=== PATIENT | female | born 1950 | race Caucasian/White ===

== ENCOUNTER 2018-03-06 08:39 | Emergency (ER) | END 2018-03-06 11:21 | disposition home or self-care (01) ==

== ENCOUNTER 2018-03-23 03:54 | Emergency (ER) | END 2018-03-23 05:32 | disposition home or self-care (01) ==

== ENCOUNTER 2018-08-09 09:31 | Emergency (ER) | END 2018-08-09 12:41 | disposition home or self-care (01) ==

== ENCOUNTER 2018-12-29 16:51 | Emergency (ER) | payer MEDICAID ==
[~2018-12-29] VITALS: Ht 147.3 cm; Wt 58.8 kg
[~2018-12-29 16:51] MED LIST: ACET325T33 PO; ACET500C5 PO; AMIO200T4 PO; ASPI-1046 PO; BENA20TA4 PO; CALC1TAB32 PO; DICY20TA59 PO; DIPH1TAB25 PO; DOCU-159 PO; GABA300C16 PO; HYDR-3980 PO; IBUP-1542 PO; LORA5TAB4 PO; MELO15TA30 PO; METF-849 PO; METO-429 PO; OMEP20CA16 PO; SIMV20TA2 PO; SPIR25TA PO; TRAM50TA2 PO; TYL500 PO; WARF2.5T PO; WARF5TAB PO
[2018-12-29 17:55] VITALS: Ht 147.3 cm; Wt 58.8 kg
[2018-12-29] MEDS ORDERED: ACETAMINOPHEN 325 MG TAB PO ONE (19:30)
[2018-12-29] MEDS ORDERED: ACET500C5 PO (20:20)
--- NOTE | 2018-12-29 20:23 | ERD ---
ER Documentation Chief Complaint Chief Complaint left hip pain s/p fall saturday HPI 68-year-old female presents with left hip pain and bruising after falling 4 days ago. She has a large amount of bruising and is concerned she has a blood clot patient has shortness of breath, syncope, calf swelling, hemoptysis, fevers, restricted range of motion weakness. She is able to ambulate although with some pain. ROS All systems reviewed and are negative except as per history of present illness. Medications Home Meds Active Scripts Acetaminophen* (Tylophen*) 500 Mg Capsule, 1 CAP PO Q6H PRN for PAIN AND OR ELEVATED TEMP, #20 CAP Prov:GE TRUJILLO MD 12/29/18 Meloxicam* (Mobic*) 15 Mg Tablet, 15 MG PO DAILY, #30 TAB Prov:LINDA SMITH PA-C 10/10/18 Acetaminophen* (Tylenol*) 500 Mg Tab, 500 MG PO Q4H PRN for MILD PAIN LEVEL 1-3, #30 TAB Prov:JHONATAN OCONNOR DO 08/09/18 Ibuprofen* (Ibuprofen*) 600 Mg Tablet, 600 MG PO Q6H PRN for PAIN, #30 TAB Prov:JHONATAN OCONNOR DO 08/09/18 Acetaminophen* (Tylenol*) 325 Mg Tablet, 2 TAB PO Q6 PRN for PAIN AND OR ELEVATED TEMP, #20 TAB Prov:MAJOR JACKMAN PA-C 03/23/18 Tramadol HCl (Tramadol HCl) 50 Mg Tablet, 50 MG PO Q6 PRN for PAIN, #20 TAB Prov:HARLAN GUTIÉRREZ PA-C 03/06/18 Hydrocodone/Acetaminophen ([place] 10-325 Tablet) 1 Each Tablet, 1 TAB PO Q6H PRN for PAIN, #20 TAB Prov:MAJOR REYNOLDS 05/20/16 Acetaminophen* (Tylophen*) 500 Mg Capsule, 500 MG PO Q6H PRN for PAIN, #20 TAB Prov:ABDIAS MCFARLANE NP 05/16/16 Gabapentin* (Gabapentin*) 300 Mg Capsule, 300 MG PO BID, #60 CAP Prov:ABDIAS MCFARLANE NP 05/16/16 Dicyclomine Hcl* (Bentyl*) 20 Mg Tablet, 20 MG PO QID, #10 TAB Prov:LATOYA JAMES MD 04/10/16 Diphenoxylate Hcl-Atropine* (Lomotil*) 1 Tab Tab, 2 TAB PO QID PRN for DIARRHEA, #20 TAB Prov:LATOYA JAMES MD 04/10/16 Reported Medications Warfarin Sodium* (Coumadin*) 5 Mg Tablet, 5 MG PO EXCEPT SATURDAY, TAB 04/10/16 Metoprolol Tartrate* (Lopressor*) 50 Mg Tab, 50 MG PO BID, #60 TAB 04/10/16 Warfarin Sodium* (Coumadin*) 2.5 Mg Tablet, 2.5 MG PO ONLY SATURDAY, TAB 06/18/15 Benazepril Hcl* (Benazepril Hcl*) 20 Mg Tablet, 20 MG PO DAILY, TAB 06/18/15 Metformin* (Glucophage*) 500 Mg Tab, 500 MG PO BID WITH MEALS, TAB 06/18/15 Omeprazole* (Omeprazole*) 20 Mg Capsule.dr, 20 MG PO DAILY, CAP 06/18/15 Calcium/Vitamin D (Oyst-Jaleel-D 500) 1 Tab Tab, 1 TAB PO DAILY, TAB 06/18/15 Docusate Sodium* (Docusate Sodium*) 100 Mg Capsule, 100 MG PO BID, CAP 06/18/15 Aspirin* (Aspirin* (EC)) 81 Mg Tablet.dr, 81 MG PO DAILY, TAB 06/18/15 Spironolactone* (Aldactone*) 25 Mg Tablet, 25 MG PO DAILY, TAB 06/18/15 Loratadine* (Claritin*) 5 Mg Tab.rapdis, 5 MG PO DAILY, TAB 06/18/15 Amiodarone Hcl* (Amiodarone Hcl*) 200 Mg Tablet, 200 MG PO DAILY, TAB 06/18/15 Simvastatin (Simvastatin) 20 Mg Tablet, 20 MG PO HS 03/14/12 Allergies Allergies: Coded Allergies: No Known Allergy (Unverified , 10/10/18) PMhx/Soc History of Surgery: Yes (OPEN HEART) Anesthesia Reaction: No Hx Neurological Disorder: No Hx Respiratory Disorders: No Hx Cardiac Disorders: Yes (PACEMAKER. . MITRAL VALVE REPLACEMENT ) Hx Psychiatric Problems: No Hx Miscellaneous Medical Probl: Yes (DM, HTN ,HIGH CHOLESTEROL ,arthritis) Hx Alcohol Use: No Hx Substance Use: No Hx Tobacco Use: No Smoking Status: Never smoker FmHx Family History: No diabetes, No coronary disease, No other Physical Exam Vitals Vital Signs Date Temp Pulse Resp B/P (MAP) Pulse Ox O2 O2 Flow FiO2 Time Delivery Rate 12/29/18 97.8 63 18 126/60 96 17:55 (82) Physical Exam Const: No acute distress Head: Atraumatic Eyes: Normal Conjunctiva ENT: Normal External Ears, Nose and Mouth. Neck: Full range of motion. No meningismus. Resp: Clear to auscultation bilaterally Cardio: Regular rate and rhythm, no murmurs Abd: Soft, non tender, non distended. Normal bowel sounds Skin: No petechiae or rashes Back: No midline or flank tenderness Ext: No cyanosis, or edema. Left greater trochanter ecchymosis. No bony deformities. Patient is able to ambulate with minimal limp. No calf swelling or Homans sign. Neur: Awake and alert Psych: Normal Mood and Affect Results 24 hrs Current Medications Medications Dose Sig/Arianna Start Time Status Last (Trade) Ordered Route PRN Stop Time Admin Dose Reason Admin 650 mg ONCE ONCE 12/29/18 DC 12/29/18 Acetaminophen PO 19:30 19:22 (Tylenol 12/29/18 19:31 Tab) Procedures/MDM PROCEDURE: XR Left Hip CLINICAL INDICATION: Pain TECHNIQUE: AP and frog-leg views were submitted. COMPARISON: None FINDINGS: Osseous structures: appear well mineralized and intact with no fracture or destructive process identified. Two nonaggressive lucencies with sclerotic margination are seen within the left femoral neck with the larger measuring 1.4 cm in maximal diameter and the smaller 0.6 cm. Joint spaces: The hip joint is well maintained there is no distension of the joint capsule. Soft tissues: appear unremarkable. IMPRESSION: 1. No fracture or dislocation is evident. 2. Two nonaggressive lesions are seen within the left femoral neck which demonstrate sclerotic margination with the larger measuring 1.4 cm in maximal diameter and the smaller 0.6 cm. These could represent non-ossifying fibromata, interosseous lipomas or enchondromas. R Nadine, Physician Date Time Electronically viewed and signed by Obinna Mccoy Physician on 12/29/2018 20:06 RH/ CC: GE TRUJILLO MD She given Tylenol for pain. Patient has no evidence of fracture dislocation. She is able ambulate with minimal discomfort. CT deferred given she is able to ambulate current suspicion for fracture is low given it is 4 days old and amatory status patient discharged home with Tylenol, further observation and return precautions for fevers, redness, new worsening symptoms. She is advised to follow-up with primary doctor orthopedist for pain next week. The patient was stable with no new complaints during the ER course. Clinically, there is no current evidence to suggest meningitis, sepsis, acute abdomen, pneumonia, stroke, acute coronary syndrome, pulmonary embolism, aortic dissection or any other emergent condition appearing to require further evaluation or hospitalization. Patient counseled regarding my diagnostic impression and care plan. Prior to discharge all questions answered. Pt agrees with treatment plan and understands strict return precautions. Pt is instructed to follow up with primary care provider within 24-48 hours. Precautionary instructions provided including instructions to return to the ER if not improving or for any worsening or changing symptoms or concerns. Departure Diagnosis: Primary Impression: Hip injury Encounter type: initial encounter Laterality: left Qualified Codes: S79.912A - Unspecified injury of left hip, initial encounter Condition: Stable Patient Instructions: Hematoma, Hip Contusion Referrals: DOCTOR,NOT ON STAFF (PCP) Additional Instructions: NO HAY FRACTURA HORITA. Examines normal hoy. Cheque otro vez con [facility] doctor primario en el proximo licona or regresa para mas o nueva simptomas. GE TRUJILLO MD Dec 29, 2018 20:23
[2018-12-29 20:36] VITALS: BP 141/64; PULSE 72; RESP 16
== END 2018-12-29 20:37 | disposition home or self-care (01) ==
LOC: FTE 16:51
DX: S70.02XA Contusion of left hip, initial encounter (principal); I10 Essential (primary) hypertension; E11.9 Type 2 diabetes mellitus without complications; W18.39XA Other fall on same level, initial encounter; Y92.9 Unspecified place or not applicable; Z79.84 Long term (current) use of oral hypoglycemic drugs; Z79.82 Long term (current) use of aspirin; Z79.01 Long term (current) use of anticoagulants; Z95.0 Presence of cardiac pacemaker
CPT/HCPCS: 73510; Z7502; Z7610